=== PATIENT | female | born 1965 | race Caucasian/White ===

== ENCOUNTER → 2017-10-07 | Day surgery (SDC) | payer OTHER ==
[~2017-10-07] VITALS: Ht 154.9 cm; Wt 68.0 kg
[~2017-10-07] MED LIST: *LABETALOL HCL 100 MG/20 ML VIAL PERIprocedural Use ONLY ONE; *MEPERIDINE 25 MG INJ VIAL PERIprocedural Use ONLY ONE; *morphine SULFATE 4 MG/ML PERIprocedure ONLY ONE; ACETAMINOPHEN 1000 MG/100 ML 100 ML IV ONE; ACETAMINOPHEN/HYDROcodone 325 MG/5 MG TAB PO PRN; AMIT25TA9 PO; APREPITANT 40 MG CAP ONE; BENA25CA4 PO; BUPIVACAINE/EPINEPHRINE 0.25% PF 30 ML VIAL ONE; CHLORHEXIDINE GLUCONATE 2 % 1 PACK (2 CLOTHS) TOPICAL PRN; CHLORHEXIDINE GLUCONATE 4% SOLN 120 ML BTL TOPICAL SCH; DEXAMETHASONE SOD PHOS 4 MG/ML VIAL IV ONE; DO NOT ADM ANY ANTICOAGULANT DRUGS PRN; FAMOTIDINE 20 MG/2 ML VIAL ONE; GENTAMICIN SULFATE 80 MG/2 ML VIAL ONE; IBUP-232 PO; KETOROLAC TROMETHAMINE 30 MG/ML (IVP) VIAL IV PUSH ONE; KETOROLAC TROMETHAMINE 30 MG/ML (IVP) VIAL ONE; LACTATED RINGER'S 1000 ML IV PRN; LIDOCAINE HCL 1% PF 5 ML SYRINGE OTHER ONE; METOPROLOL TARTRATE 25 MG TAB PO PRN; MIDAZOLAM HCL 2 MG/2 ML VIAL ONE; MORPHINE SULFATE 2 MG/ML INJ IV PUSH PRN; ONDANSETRON HCL 4 MG/2 ML VIAL IV ONE; ONDANSETRON HCL 4 MG/2 ML VIAL IV PUSH PRN; ONDANSETRON HCL 4 MG/2 ML VIAL ONE; PERC5TAB12 PO; POVIDONE IODINE 5% (ANTISEPSIS KIT) 4 APPLICATIONS EACH NARE PRN; PROPOFOL 200 MG/20 ML AMP IV ONE; SODIUM CHLORID 0.9% 500 ML IV PRN; SODIUM CHLORIDE 0.9% FLUSH 10 ML FLUSH IV FLUSH PRN; SODIUM CHLORIDE 0.9% FLUSH 10 ML FLUSH IV FLUSH SCH; VANCOMYCIN 1000 MG/NS 250 ML (for <70 kg) IV SCH; WELLTAB39 PO; ceFAZolin INJ 1,000 MG VIAL ONE
--- NOTE | 2017-10-07 14:43 | RADRPT ---
EXAM DATE/TIME: 10/07/2017 14:21 [place] COMPARISON: No previous studies available for comparison. INDICATIONS : Right ankle open reduction internal fixation. MEDICAL HISTORY : None. SURGICAL HISTORY : None. ENCOUNTER: Initial ACUITY: 1 day PAIN SCORE: Non-responsive. LOCATION: Right ankle FINDINGS: Side plate and multiple screws traverse the distal fibula in addition to screws traversing the medial malleolus with excellent anatomical alignment of the fracture fragments. CONCLUSION: Intact postsurgical changes for technique. Caren Guy MD on October 07, 2017 at 14:37 Board Certified Radiologist. This report was verified electronically.
--- NOTE | 2017-10-07 14:55 | PD.OP ---
cc: Kay Hroan MD Operative Report Closed displaced right bimalleolar ankle fracture Postoperative Diagnosis: Same Procedure: Open reduction internal fixation right bimalleolar ankle fracture Anesthesia: Gen. Surgeon: Kay Horan [employer](s): None Operation and Findings: Estimated blood loss: 15 cc Specimens: None Consultations: None Indications for procedure: Patient is a 52-year-old female who presented 3 days after a trip and fall with a closed displaced right bimalleolar ankle fracture. Options of management were discussed with the patient including nonoperative versus operative intervention. Operative intervention in the form of open reduction internal fixation of her right bimalleolar ankle fracture versus discussed. Risks of surgery including but not limited to: Infection, nonunion or malunion, hardware malposition or failure, prominent painful hardware, ankle stiffness and arthritis, ankle instability, neurovascular injury, possible need for further surgery, and other unforeseen consultations were all discussed with the patient. At this time she did consent to the above-mentioned procedure. Description of procedure: Patient was taken back to the operating room placed supine on operating room table with all bony prominences well-padded. Preoperative antibiotics were given within 1 hour of incision. Patient was prepped and draped in standard sterile fashion. A timeout was performed to identify the correct patient, side, site and procedure to be performed. A tourniquet was inflated to 250 mmHg. A lateral based incision was made directly over the distal fibula fracture. Careful dissection through the subcutaneous tissue to avoid the superficial peroneal nerve was performed. The fracture was identified and and cleaned. A one third tubular plate was placed on the fibula and the fracture reduced to the plate. The fracture was found to be well reduced on AP and lateral x-rays and out to length. Proximal and distal nonlocking screws were placed. At this time I then turned my attention to the medial malleolus fracture. A small anterior medial incision was made directly over the fracture. The fracture was cleaned and reduced under direct visualization and verified on AP and lateral radiographs. This was held in place with a dental pick and 2 guidewires were then placed from distal to proximal from the tip of the medial malleolus into the tibia. These were found to be in acceptable position and out of the joint line with the fracture well reduced. These wires were then measured, the near cortex drilled and 2 cannulated screws placed. The wires were removed. The medial malleolus fracture was found to be well aligned on AP and lateral radiographs and hardware in good position. At this time an external stress test was performed on the ankle under fluoroscopy and there did not appear to be any widening of the syndesmosis and therefore syndesmotic screw was not placed. Final radiographs demonstrated the fracture appeared well aligned and hardware in good position. The wounds were thoroughly irrigated. The tourniquet was released and hemostasis was achieved. 10 cc of quarter percent Marcaine with epinephrine was injected for local anesthetic around the lateral and medial incisions. The incisions were closed with Vicryl and nylon sutures. Sterile dressings were placed and then a splint applied. The patient was awoken from general anesthesia without complication. Disposition: Patient will remain nonweightbearing to the right lower extremity in her splint. Plan for discharge from the postop area. Follow-up in my office as scheduled in 2 weeks. Kay Horan MD Oct 07, 2017 14:55
[2017-10-07 16:17] VITALS: BP 140/86; PULSE 100; RESP 20; TEMP 98.5; O2SAT 100
--- NOTE | 2017-10-08 18:30 | EKG ---
Date Performed: 10/07/2017 Time Performed: 10:37:23 PTAGE: 52 years EKG: Sinus rhythm NORMAL ECG PREVIOUS TRACING : 04/14/2012 15.17 DOCTOR: Cody Foster Interpretating Date/Time 10/08/2017 18:29:22
== END | disposition home or self-care (01) ==
LOC: HSDC 09:24
PROVIDERS: ATTEND Orthopaedic Surgery Orthopaedic Surgery of the Spine
DX: S82.841A Displaced bimalleolar fracture of right lower leg, initial encounter for closed fracture (principal); W01.0XXA Fall on same level from slipping, tripping and stumbling without subsequent striking against object, initial encounter; Z01.810 Encounter for preprocedural cardiovascular examination
CPT/HCPCS: 01480; 27814; 73610; 76000; 93005; C1713; J0131; J0690; J1100; J1580; J1885; J2175; J2250; J2270; J2405; J3010; J3370; J7050; J7120; J8501